=== PATIENT | female | born 1990 | race Caucasian/White ===

== ENCOUNTER 2018-04-15 20:37 | Outpatient (REF) | payer MEDICAID, SELFPAY ==
[2018-04-15 21:37] LABS: ALT 48 U/L (12-78); AST 27 U/L (15-37); Albumin 3.4 g/dL (3.4-5.0); Alkaline Phosphatase 90 U/L (46-116); Anion Gap 7.3 mmol/L (3-11); BUN 15 mg/dL (7-18); Bilirubin, Total 0.3 mg/dL (0.2-1.0); CO2 29.7 mmol/L (21.0-32.0); Chloride 105 mmol/L (98-107); Cholesterol 251 mg/dL (50-200); Estimated GFR 59.58 (mL/min/1.73m2); Glucose 94 mg/dL (70-100); HDL Cholesterol 38 mg/dL (40-60); LDL CHOLESTEROL 187 mg/dL (<100); Potassium 4.3 mmol/L (3.5-5.1); Sodium 142 mmol/L (136-145); TSH (W/Ref FT4) 1.97 uIU/mL (0.358-3.74); Total Protein 7.1 g/dL (6.4-8.2); Triglyceride 146 mg/dL (30-150)
[2018-04-15 21:46] LABS: Abs Immature Grans 0.02 k/cumm (0.0-0.09); Absolute Basophil Count 0.04 k/cumm (0.0-0.2); Absolute Eosinophil Count 0.61 k/cumm (0.0-0.7); Absolute Lymphocyte Count 3.72 k/cumm (1.2-3.4); Absolute Neutrophil Count 4.88 k/cumm (1.2-6.7); Basophils % 0.4; Eosinophils % 6.2; HGB 14.6 g/dL (12.0-15.5); Immature Grans % 0.2; Lymphocytes % 38.1; Mean Corp. HGB Concentration 31.7 g/dL (32.0-36.0); Mean Corpuscular Hemoglobin 26.4 pg (27.0-33.0); Mean Corpuscular Volume 83.2 fL (80-95); Mean Platelet Volume 10.8 fL (8.0-11.0); Monocytes % 5.1; Platelet Count 341 x1000/uL (130-400); RBC 5.53 m/cumm (4.00-5.20); RBC Distribution Width 14.7 % (11.7-14.6); White Blood Cell Count 9.77 k/cumm (4.4-10.8)
[2018-04-15 22:26] LABS: Hemoglobin A1C 5.8 % (4.5-6.2)
[2018-04-15 22:38] LABS: C-Reactive Protein 2.34 mg/dL (0.0-0.3)
[2018-04-15 23:05] LABS: ESR 17 MM/HR (0-20)
[2018-04-16 13:22] LABS: Calcium 9.9 mg/dL (8.5-10.1)
[2018-04-17 14:34] LABS: Vitamin D 25 Total 53.6 ng/ml (30-100)
== END 2018-04-15 20:57 ==
LOC: NCHCN 20:37
PROVIDERS: PCP Family Medicine; Visit Provider Family Medicine
DX: M54.2 Cervicalgia (principal); F41.1 Generalized anxiety disorder; E66.9 Obesity, unspecified
CPT/HCPCS: 80053; 80061; 82306; 83721; 85652; 83036; 84443; 85025; 86140

== ENCOUNTER 2019-04-14 18:05 | Outpatient (REF) | payer MEDICAID, SELFPAY ==
[2019-04-14 22:59] LABS: Bacteria Few HPF (Negative); Crystals Negative HPF (Negative); Epithelial Cells Few HPF (Negative); RBC 20-50 (0-2)
[2019-04-14 23:00] LABS: C & S Indicated? Yes; Casts Negative LPF (Negative); Mucus Trace (Negative)
== END 2019-04-14 18:25 ==
LOC: NCHCN 18:05
PROVIDERS: PCP Family Medicine; Visit Provider Family Medicine
DX: N20.0 Calculus of kidney (principal); R10.9 Unspecified abdominal pain
CPT/HCPCS: 81015; 87086

== ENCOUNTER 2020-03-14 12:30 | Outpatient (REF) | payer MEDICAID, SELFPAY | END 2020-03-14 12:50 | LOC: NCHCN 12:30 | PROVIDERS: PCP Family Medicine; Visit Provider Nurse Practitioner Family | DX: N20.0 Calculus of kidney (principal); R10.9 Unspecified abdominal pain | CPT/HCPCS: 87086 ==

== ENCOUNTER 2020-06-06 22:26 | Outpatient (REF) | payer MEDICAID, SELFPAY ==
[2020-06-10 10:10] LABS: COVID-19 RT-PCR Result NEGATIVE (Negative)
== END 2020-06-06 22:46 ==
LOC: NCHCN 22:26
PROVIDERS: PCP Family Medicine; Visit Provider Nurse Practitioner Family
DX: J02.9 Acute pharyngitis, unspecified (principal)
CPT/HCPCS: U0003

== ENCOUNTER 2020-08-25 22:29 | Outpatient (REF) | payer MEDICAID, SELFPAY ==
[2020-08-25 14:13] LABS: Vitamin D 25 Total 36.5 ng/ml (30-100)
[2020-08-25 14:23] LABS: ALT 30 U/L (14-59); AST 19 U/L (15-37); Albumin 3.4 g/dL (3.4-5.0); Alkaline Phosphatase 87 U/L (46-116); Anion Gap 8.5 mmol/L (3-11); BUN 15 mg/dL (7-18); Bilirubin, Total 0.2 mg/dL (0.2-1.0); CO2 28.5 mmol/L (21.0-32.0); Calcium 9.3 mg/dL (8.5-10.1); Calculated LDL 151 mg/dL (<100); Chloride 104 mmol/L (98-107); Cholesterol 218 mg/dL (<200); Glucose 90 mg/dL (74-106); HDL Cholesterol 40 mg/dL (40-60); Magnesium 1.9 mg/dL (1.8-2.4); Potassium 4.1 mmol/L (3.5-5.1); Sodium 141 mmol/L (136-145); Total Protein 7.4 g/dL (6.4-8.2); Triglyceride 137 mg/dL (<150); Vitamin B12 398 pg/mL (193-986)
== END 2020-08-25 22:30 | disposition home or self-care (01) ==
LOC: NCHCN 22:29
PROVIDERS: PCP Family Medicine; Visit Provider Family Medicine
DX: R73.03 Prediabetes (principal); E66.01 Morbid (severe) obesity due to excess calories; Z13.220 Encounter for screening for lipoid disorders; Z13.29 Encounter for screening for other suspected endocrine disorder; K21.9 Gastro-esophageal reflux disease without esophagitis
CPT/HCPCS: 80053; 80061; 82306; 82607; 83036; 83735; 84443

== ENCOUNTER 2020-09-21 20:17 | Outpatient (REF) | payer MEDICAID, SELFPAY | END 2020-09-21 20:18 | disposition home or self-care (01) | LOC: NCHCN 20:17 | PROVIDERS: PCP Family Medicine; Visit Provider Nurse Practitioner Community Health | DX: R31.9 Hematuria, unspecified (principal) | CPT/HCPCS: 87086 ==

== ENCOUNTER 2020-10-11 18:25 | Outpatient (REF) | payer MEDICAID, SELFPAY | END 2020-10-11 18:26 | disposition home or self-care (01) | LOC: NCHCN 18:25 | PROVIDERS: PCP Family Medicine; Visit Provider Nurse Practitioner Family | DX: R35.0 Frequency of micturition (principal) | CPT/HCPCS: 87086 ==

== ENCOUNTER 2020-12-29 10:23 | Outpatient (REF) | payer MEDICAID, SELFPAY | END 2020-12-29 10:24 | disposition home or self-care (01) | LOC: NCHCN 10:23 | PROVIDERS: PCP Family Medicine; Visit Provider Nurse Practitioner Family | DX: Z87.442 Personal history of urinary calculi (principal) | CPT/HCPCS: 87086 ==

== ENCOUNTER 2022-04-17 14:19 | Outpatient (REF) | payer MEDICAID, SELFPAY ==
[2022-04-17 15:14] LABS: Anion Gap 8.9 mmol/L (3-11); BUN 16 mg/dL (7-18); CO2 26.1 mmol/L (21.0-32.0); Calcium 9.4 mg/dL (8.5-10.1); Calculated LDL 189 mg/dL (<100); Chloride 105 mmol/L (98-107); Cholesterol 254 mg/dL (<200); Estimated GFR 77.24 (mL/min/1.73m2); Glucose 101 mg/dL (74-106); HDL Cholesterol 43 mg/dL (40-60); Potassium 4.4 mmol/L (3.5-5.1); Sodium 140 mmol/L (136-145); Triglyceride 111 mg/dL (<150)
== END 2022-04-17 14:20 | disposition home or self-care (01) ==
LOC: NCHCN 14:19
PROVIDERS: PCP Family Medicine; Visit Provider Family Medicine
DX: R73.03 Prediabetes (principal); E78.6 Lipoprotein deficiency; E66.01 Morbid (severe) obesity due to excess calories
CPT/HCPCS: 80048; 80061; 83036

== ENCOUNTER 2022-09-05 10:10 | Outpatient (REF) | payer MEDICAID, SELFPAY | END 2022-09-05 10:11 | disposition home or self-care (01) | LOC: NCHCN 10:10 | PROVIDERS: PCP Family Medicine; Visit Provider Internal Medicine | DX: L02.416 Cutaneous abscess of left lower limb (principal) | CPT/HCPCS: 87077; 87070; 87186; 87205 ==

== ENCOUNTER 2023-07-24 15:53 | Outpatient (REF) | payer MEDICAID, SELFPAY | END 2023-07-24 15:54 | disposition home or self-care (01) | LOC: NCHCN 15:53 | PROVIDERS: PCP Family Medicine; Visit Provider Physician Assistant | DX: R30.0 Dysuria (principal) | CPT/HCPCS: 87086 ==

== ENCOUNTER 2023-07-29 16:15 | Outpatient (REF) | payer MEDICAID, SELFPAY ==
[2023-07-29 22:29] LABS: ALT 30 U/L (14-59); AST 22 U/L (15-37); Albumin 3.7 g/dL (3.4-5.0); Alkaline Phosphatase 56 U/L (46-116); Anion Gap 9.6 mmol/L (3-11); BUN 13 mg/dL (7-18); Bilirubin, Total 0.2 mg/dL (0.2-1.0); CO2 25.4 mmol/L (21.0-32.0); CREATININE 1.1 mg/dL (0.55-1.02); Calcium 9.7 mg/dL (8.5-10.1); Chloride 106 mmol/L (98-107); Estimated GFR 68.04 (mL/min/1.73m2); Glucose 116 mg/dL (74-106); Magnesium 1.9 mg/dL (1.8-2.4); Potassium 3.8 mmol/L (3.5-5.1); Sodium 141 mmol/L (136-145); Total Protein 7.5 g/dL (6.4-8.2)
[2023-07-29 22:48] LABS: Calculated LDL 166 mg/dL (<100); Cholesterol 235 mg/dL (<200); HDL Cholesterol 43 mg/dL (40-60); Triglyceride 131 mg/dL (<150)
[2023-07-29 22:53] LABS: Hemoglobin A1C 5.6 % (<5.7)
== END 2023-07-29 16:16 | disposition home or self-care (01) ==
LOC: NCHCN 16:15
PROVIDERS: PCP Family Medicine; Visit Provider Registered Nurse
DX: R73.03 Prediabetes (principal); E78.5 Hyperlipidemia, unspecified; K21.00 Gastro-esophageal reflux disease with esophagitis, without bleeding
CPT/HCPCS: 80053; 80061; 83036; 83735

== ENCOUNTER 2023-09-06 16:25 | Outpatient (REF) | payer MEDICAID, SELFPAY | END 2023-09-06 16:26 | disposition home or self-care (01) | LOC: NCHCN 16:25 | PROVIDERS: PCP Family Medicine; Visit Provider Family Medicine | DX: J06.9 Acute upper respiratory infection, unspecified (principal); R07.0 Pain in throat | CPT/HCPCS: 87070 ==

== ENCOUNTER 2024-01-28 15:47 | Outpatient (REF) | payer MEDICAID, SELFPAY ==
[2024-01-28 21:15] LABS: Abs Immature Grans 0.02 10^3/uL (0.0-0.06); Absolute Basophil Count 0.06 10^3/uL (0.0-0.2); Absolute Eosinophil Count 0.58 10^3/uL (0.0-0.7); Absolute Lymphocyte Count 3.31 10^3/uL (1.2-3.4); Absolute Monocyte Count 0.45 10^3/uL (0.1-0.8); Absolute Neutrophil Count 4.46 10^3/uL (1.2-6.7); Basophils % 0.7 %; Eosinophils % 6.5 %; HCT 43.9 % (36.0-46.0); Immature Grans % 0.2 %; Lymphocytes % 37.3 %; MCH 26.2 pg (27.0-33.0); MCHC 31.9 % (32.0-36.0); MCV 82 fL (80-95); MPV 10.4 fL (8.0-11.0); Monocytes % 5.1 %; Neutrophils % 50.2 %; Platelet Count 346 10^3/uL (130-400); RBC 5.34 10^6/uL (3.93-5.22); RDW 14.5 % (11.7-14.6); RDW-SD 43.1 fL; WBC 8.88 10^3/uL (4.4-10.8)
[2024-01-28 21:36] LABS: ALT 15 U/L (14-59); AST 16 U/L (15-37); Albumin 3.4 g/dL (3.4-5.0); Alkaline Phosphatase 75 U/L (46-116); Anion Gap 5.3 mmol/L (3-11); BUN 17 mg/dL (7-18); CO2 30.7 mmol/L (21.0-32.0); CREATININE 1.1 mg/dL (0.55-1.02); Calcium 9.3 mg/dL (8.5-10.1); Chloride 104 mmol/L (98-107); Estimated GFR 68.04 (mL/min/1.73m2); Glucose 122 mg/dL (74-106); Lipase 29 U/L (16-77); Potassium 4.5 mmol/L (3.5-5.1); Sodium 140 mmol/L (136-145); Total Protein 7.3 g/dL (6.4-8.2)
[2024-01-29 16:53] LABS: Hemoglobin A1C 5.7 % (<5.7)
== END 2024-01-28 15:48 | disposition home or self-care (01) ==
LOC: NCHCN 15:47
PROVIDERS: PCP Family Medicine; Visit Provider Family Medicine
DX: R10.9 Unspecified abdominal pain (principal); R73.03 Prediabetes
CPT/HCPCS: 80053; 83690; 83036; 85025

== ENCOUNTER 2024-07-24 16:14 | Outpatient (REF) | payer MEDICAID, SELFPAY ==
[2024-07-24 21:05] LABS: Abs Immature Grans 0.03 10^3/uL (0.0-0.06); Absolute Eosinophil Count 0.73 10^3/uL (0.0-0.7); Absolute Lymphocyte Count 3.98 10^3/uL (1.2-3.4); Absolute Monocyte Count 0.48 10^3/uL (0.1-0.8); Basophils % 0.8 %; Eosinophils % 6.1 %; HCT 47.1 % (36.0-46.0); HGB 14.9 g/dL (11.2-15.7); Immature Grans % 0.3 %; Lymphocytes % 33.4 %; MCH 25.6 pg (27.0-33.0); MCHC 31.6 % (32.0-36.0); MCV 81 fL (80-95); MPV 10.5 fL (8.0-11.0); Neutrophils % 55.4 %; Platelet Count 376 10^3/uL (130-400); RBC 5.82 10^6/uL (3.93-5.22); RDW 14.8 % (11.7-14.6); RDW-SD 42.8 fL; WBC 11.92 10^3/uL (4.4-10.8)
[2024-07-24 21:27] LABS: Hemoglobin A1C 5.7 % (<5.7)
[2024-07-24 21:43] LABS: ALT 19 U/L (14-59); AST 19 U/L (15-37); Albumin 3.7 g/dL (3.4-5.0); Alkaline Phosphatase 69 U/L (46-116); Anion Gap 5.1 mmol/L (3-11); BUN 18 mg/dL (7-18); Bilirubin, Total 0.22 mg/dL (0.2-1.0); CO2 30.9 mmol/L (21.0-32.0); CREATININE 1.2 mg/dL (0.55-1.02); Calculated LDL 181 mg/dL (<100); Chloride 105 mmol/L (98-107); Cholesterol 270 mg/dL (<200); Estimated GFR 60.92 (mL/min/1.73m2); Folate 5.3 ng/mL (8.6-20.0); Glucose 117 mg/dL (74-106); HDL Cholesterol 42 mg/dL (40-60); Potassium 3.8 mmol/L (3.5-5.1); Sodium 141 mmol/L (136-145); TSH (W/Ref FT4) 1.87 uIU/mL (0.36-3.74); Total Protein 7.8 g/dL (6.4-8.2); Triglyceride 239 mg/dL (<150); Vitamin B12 523 pg/mL (193-986); Vitamin D 25 Total 27.6 ng/mL (30-100)
== END 2024-07-24 16:15 | disposition home or self-care (01) ==
LOC: NCHCN 16:14
PROVIDERS: PCP Family Medicine; Visit Provider Family Medicine
DX: R53.83 Other fatigue (principal); R73.03 Prediabetes; E66.01 Morbid (severe) obesity due to excess calories; D75.89 Other specified diseases of blood and blood-forming organs
CPT/HCPCS: 80053; 80061; 82306; 82607; 82746; 83036; 84443; 85025

== ENCOUNTER 2024-10-06 22:48 | Emergency (ER) | payer MEDICAID, SELFPAY ==
[2024-10-06 22:51] VITALS: BP 163/134; PULSE 102; RESP 18; TEMP 36.5; O2SAT 99
--- NOTE | 2024-10-06 23:00 | DI.RAD_ITS ---
Exam(s) XR HAND RT COMPLETE XR WRIST RT COMPLETE EXAM: XR HAND RT COMPLETE and XR wrist RT complete CLINICAL HISTORY: right thumb scaphoid tenderness. TECHNIQUE: 2D digital imaging was performed of the right wrist and hand. Seven images were obtained . AP, navicular, lateral and oblique views were obtained. COMPARISON: There are no priors for comparison. FINDINGS: BONES: No acute fracture is present. No bony destructive lesion is seen. JOINTS: No dislocation present. The joint spaces are well maintained. SOFT TISSUE: Normal. IMPRESSION: Unremarkable radiographs of the right wrist and hand. DATA REPOSITORY: RADIATION DOSE DELIVERED:
[2024-10-06] MEDS: Acetaminophen 500 MG TAB 1000 MG PO (23:20)
--- NOTE | 2024-10-07 | DI.VRAD_ITS ---
PROCEDURE INFORMATION: Exam: XR Right Wrist Exam date and time: 10/06/2024 11:26 PM Age: 34 years old Clinical indication: Pain; Wrist; Right thumb \T\ scaphoid tenderness TECHNIQUE: Imaging protocol: Radiologic exam of the right wrist. Views: 3 or more views. COMPARISON: CR XR HAND RT COMPLETE 10/06/2024 11:26 PM FINDINGS: Bones/joints: Normal. Soft tissues: Normal. IMPRESSION: No acute findings. Dictated and Authenticated by: Tequila Johnson MD. Orderin Drew Shepherd MD
--- NOTE | 2024-10-07 00:01 | ED.GENADUL_ITS ---
Discharge Plan Disposition Patient Disposition: Home Condition: Good Discharge Details Clinical Impression: Sprain Primary Care Provider: Rosie Shi ED Provider: Cora Russell Home Meds and New Rx's Prescriptions: Continued tamsulosin 0.4 mg capsule PO Patient Comments: TAKE ONE CAPSULE BY MOUTH EVERY DAY omeprazole 20 mg capsule,delayed release(/EC) Patient Comments: TAKE ONE CAPSULE BY MOUTH TWICE A DAY hydrochlorothiazide 12.5 mg tablet Patient Comments: TAKE ONE TABLET BY MOUTH EVERY DAY NEEDED FOR EDEMA Discharge Instructions Instructions: Common Wrist Injuries ED, Thumb Sprain ED Additional Instructions: You may have a bad sprain, but it is also possible you have a type of fracture that does not show up on xray or a more severe injury to your ligaments and te ndons. You will need to followup with a hand specialist within one week. [facility] plastic surgery should call you to schedule an appointment. If you do not hear from them by the day after tomorrow, please call them at [phone] to schedule your appointment. Wear the splint you were provided until cleared by your hand specialist. You can take tylenol and ibuprofen over the counter for pain; follow the directions on the bottle. Return to the emergency department for new or worsening symptoms including numbness or tingling in your hand, if your fingers change colors (white, blue), your pain is not controlled at home with over the counter medications, or if you have any other concerns. HPI General Mode of arrival: ambulatory . Date/Time Provider Initiated Documentation: 10/06/24 22:51 . Limitations to Documentation: no limitations . Information obtained by: patient . HPI Narrative: 34yo female presenting with right wrist and thumb pain onset shortly before arrival. She was holding her dog's collar when the dog moved; her hand twisted but she is not sure in what direction. Pain with moving wrist, moderate, dull, non-radiating. Difficult to move thumb. Has had some tingling to her thumb. No swelling. No numbness in thumb, hand, wrist. She did not fall. Right- handed. Otherwise in her usual state of health. Related Data Home Medications ?Medication ?Instructions ?Recorded ?Confirmed hydrochlorothiazide 12.5 mg tablet mg 10/06/24 omeprazole 20 mg capsule,delayed mg 10/06/24 release tamsulosin 0.4 mg capsule mg PO 10/06/24 Allergies Allergy/AdvReac Type Severity Reaction Status Date / Time aspirin AdvReac chest pain Verified 10/06/24 22:59 cyclobenzaprine (From AdvReac PT can't Verified 10/06/24 22:59 Flexeril) remember General Stated Complaint: Orthopedic BENJI: 3 Review of Systems Narrative: see HPI Exam Narrative Exam Narrative: General: Alert, well appearing, well nourished, in no acute distress. Head: Normocephalic, atraumatic Neck: Trachea midline, ?Neck supple. Cardiac: ?No cyanosis. Resp: No respiratory distress. Speaking in full sentences. Neurologic: GCS 15. ? Moves all extremities freely against gravity RUE: No deformities or swelling. Good radial pulse symmetric with left. Brisk capillary refill all digits. Sensation intact to light touch throughout wrist, hand, and all digits. Marked TTP of anatomic snuffbox, trapezium, 1st metacarpal. Minimal tenderness at PIP, proximal phalanx, and DIP. Minimal movement when attempting to oppose thumb. Unable to flex, adduct, or abduct thumb. Able to flex, extend, abduct and adduct wrist. Pain with passive ROM at wrist, greatest with abduction and adduction. Reassessment: RUE: No deformities or swelling. Good radial pulse symmetric with left. Brisk capillary refill all digits. Sensation intact to light touch throughout wrist, hand, and all digits. Marked TTP of anatomic snuffbox, trapezium, 1st metacarpal. Able to fully oppose thumb to all digits albeit with minimal strength. Improved thumb flexion and adduction. Remains unable to abduct. Able to flex, extend, abduct and adduct wrist. Pain with passive ROM at wrist, greatest with abduction and adduction. Course Vital Signs Vital signs: Vital Signs Temperature 36.5 C 10/06/24 22:51 Pulse 102 H 10/06/24 22:51 Respiratory Rate 18 10/06/24 22:51 Blood Pressure 163/134 H 10/06/24 22:51 Pulse Oximetry 99 10/06/24 22:51 Temperature 36.5 C 10/06/24 22:51 Pulse 102 H 10/06/24 22:51 Respiratory Rate 18 10/06/24 22:51 Blood Pressure 163/134 H 10/06/24 22:51 Pulse Oximetry 99 10/06/24 22:51 Pain Level 5 10/06/24 22:51 Medical Decision Making 34yo right handed female presenting with right wrist and thumb pain after hand was twisted while holding dog's collar. Hypertensive and slightly tachycardiac on arrival (suspect 2/t to pain). No deformity or swelling on exam. Good radial and ulnar pulse and brisk capillary refill all digits. Sensation intact to light touch throughout; does report parethesias to thumb. Minimal active ROM at thumb despite good effort. No evident laxity on my exam. Markedly tender to radial wrist and some tenderness to thumb as well; does have significant tenderness in the anatomic snuffbox concerning for scaphoid fracture. Not suggestive of vascular compromise; nerve injury is possible. -tylenol and ibuprofen for pain; offered toradol which pt declined -XR hand and wrist independently reviewed; no displaced fracture or dislocation on my view; radiology read below with no acute findings. On reassessment ROM improved, now able to fully oppose thumb ableit with poor strenghth; flexion/adduction also improved though she remains unable to abduct. Snuffbox tenderness raises concern for occult scaphoid fracture and limited strength/ROM at thumb for ligament or tendon injury. Consulted [facility]; spoke with Dr. Miller from plastic surgery covering for hand. Discussed patient's presentation and exam including parethesias (now resolved) and limited ROM and strength in thumb. Feels presentation likely due to sprain, though more severe ligamentous injury possible. Advised no further emergent/urgent imaging at this time (CT/MRI), appropriate for outpatient followup with plastics within one week, and thumb spica splint in the meantime. Discharged home to followup with plastics; discharge instructions and return precautions were reviewed with patient who verbalized understanding. All questions were answered and she is in full agreement with the plan. Quality:[facility] Health Related Social Needs: No Data to Display [facility] All Active Problems (Updated 10/07/24 @ 00:48 by Cora Russell MD) Sprain (Acute) Social History Smoking/Tobacco Use Status: Never Smoking risk assessment performed?: Yes Alcohol Intake: current Alcohol Intake frequency: holidays/special occasions only PAWSS Have you Been Recently Intoxicated or Drunk Within the Last 30 days?: No Have you Ever Experienced Previous Episodes of Alcohol Withdrawal?: No Have you ever Experienced Withdrawal Seizures?: No Have you ever Experienced Delirium Tremens(DT)s?: No Have you ever undergone Alcohol Rehabilitation Treatment (i.e, inpt ot outpatient treatment programs)?: No Have you ever Experienced Blackouts?: No Have you ever Combined Alcohol with other Downers within the last 90 days?: No Have you ever Combined Alcohol with any other Substance of Abuse during the last 90 days?: No Positive Blood Alcohol level on Presentation? [PCS.BAL]: No Evidence of Increased Autonomic Activity (i.e. HR>120, tremor, sweating, agitation, nausea)?: No Result: 0
--- NOTE | 2024-10-07 00:02 | DI.VRAD_ITS ---
PROCEDURE INFORMATION: Exam: XR Right Hand Exam date and time: 10/06/2024 11:26 PM Age: 34 years old Clinical indication: Pain; Hand; Right thumb \T\ scaphoid tenderness TECHNIQUE: Imaging protocol: Radiologic exam of the right hand. Views: 3 or more views. COMPARISON: CR XR WRIST RT COMPLETE 10/06/2024 11:26 PM FINDINGS: Bones/joints: Normal. Soft tissues: Normal. IMPRESSION: No acute findings. Dictated and Authenticated by: Tequila Johnson MD. Orderin Drew Shepherd MD
[2024-10-07] MEDS: Ibuprofen 800 MG TAB PO (00:18)
[2024-10-07 00:20] VITALS: BP 127/74; PULSE 76; RESP 18; O2SAT 99
[2024-10-07 01:00] VITALS: PULSE 77; RESP 18; O2SAT 99
--- NOTE | 2024-10-10 12:34 | NUR.NOTE ---
Accessed chart to get the discharge diagnosis for [facility] billing purposes.Nursing Note:
== END 2024-10-07 01:03 | disposition home or self-care (01) ==
LOC: ER 10-07 01:06
PROVIDERS: Emergency Provider Student in an Organized Health Care Education/Training Program; PCP Family Medicine
DX: S63.501A Unspecified sprain of right wrist, initial encounter (principal); X50.1XXA Overexertion from prolonged static or awkward postures, initial encounter; Y93.K9 Activity, other involving animal care; Y92.89 Other specified places as the place of occurrence of the external cause
CPT/HCPCS: 99283; 73110; 73130

== ENCOUNTER 2024-11-20 16:45 | Emergency (ER) | payer MEDICAID, SELFPAY ==
[2024-11-20 16:49] VITALS: BP 121/77; PULSE 120; RESP 22; O2SAT 97
--- NOTE | 2024-11-20 16:56 | ED.GENADUL_ITS ---
Discharge Plan Disposition Patient Disposition: Home Condition: Stable Discharge Details Clinical Impression: Laceration of hand Primary Care Provider: Rosie Shi ED Provider: Sayra Mcelroy Home Meds and New Rx's Prescriptions: No Action tamsulosin 0.4 mg capsule PO Patient Comments: TAKE ONE CAPSULE BY MOUTH EVERY DAY omeprazole 20 mg capsule,delayed release(DR/EC) Patient Comments: TAKE ONE CAPSULE BY MOUTH TWICE A DAY hydrochlorothiazide 12.5 mg tablet Patient Comments: TAKE ONE TABLET BY MOUTH EVERY DAY NEEDED FOR EDEMA Discharge Instructions Instructions: Laceration Repair With Glue ED Additional Instructions: You were seen in the emergency department today for evaluation of a laceration. In our department you do full physical examination performed, had the wound thoroughly cleaned, and it was repaired with glue and Steri-Strips. As this is your dominant hand it is likely that these will fall off in the next few days. Once they do please keep the area clean and dry, use antibiotic ointment and bandages. Avoid soaking or scrubbing the area, and wear gloves for the first 1 to 2 days when bathing or doing dishes. Please follow-up with your primary care provider in the next few days to discuss this visit and any symptoms that change, worsen, or persist. Thank you for allowing us to be part of your care. HPI General Mode of arrival: ambulatory . Date/Time Provider Initiated Documentation: 11/20/24 16:55 . Limitations to Documentation: no limitations . Information obtained by: patient, family and old records reviewed . HPI Narrative: This is a 34-year-old female patient with a history of panic disorder who is presenting for evaluation of hand laceration. She is right-hand dominant, was throwing a delfino piece of metal because she got angry, and sliced the palm of her right hand during this event. This happened approximately 30 minutes prior to arrival at our facility, she did not injure any other part of her body. She reports that she feels like she is panicking and going to , or have a heart attack, or have a stroke. She is noted to be tachypneic, with carpopedal spasms bilaterally. She states that she feels like both of her hands are numb, as are her legs. She is accompanied by her partner, as well as her sister. Prior to this event she is reported to have been in her normal state of health. Her partner reports that her tetanus shot is not up-to-date. Related Data Home Medications ?Medication ?Instructions ?Recorded ?Confirmed hydrochlorothiazide 12.5 mg tablet mg 10/06/24 omeprazole 20 mg capsule,delayed mg 10/06/24 release tamsulosin 0.4 mg capsule mg PO 10/06/24 Allergies Allergy/AdvReac Type Severity Reaction Status Date / Time aspirin AdvReac chest pain Verified 10/06/24 22:59 cyclobenzaprine (From AdvReac PT can't Verified 10/06/24 22:59 Flexeril) remember General Stated Complaint: Laceration BENJI: 3 Exam Narrative Exam Narrative: Gen: Awake and alert, in no apparent distress HEENT: Non-icteric sclera Neck: Supple Lungs: Tachypnea and hyperventilation appreciated, normal oxygen saturation CV: Appears well perfused, heart with tachycardic rate but regular rhythm, strong distal pulses Abdomen: Non-distended MSK: Moves 4 extremities without apparent limitation in ROM Skin: Visualized skin without rashes, cyanosis. The patient has a very superficial 3 cm laceration to the right palm, along the thenar crease. It is hemostatic. She has a very small abrasion to the hyperthenar aspect of the palm, hemostatic. No visualized foreign bodies. Neuro: Normal Gait, no obvious focal deficits or facial asymmetry. Speaks in full, clear sentences. Endorsing numbness throughout her body, with carpopedal spasms Psych: Endorsing extreme anxiety and panic feelings Course Vital Signs Vital signs: Vital Signs Pulse 120 H 11/20/24 16:49 Respiratory Rate 22 11/20/24 16:49 Blood Pressure 121/77 11/20/24 16:49 Pulse Oximetry 97 11/20/24 16:49 Pulse 120 H 11/20/24 16:49 Respiratory Rate 22 11/20/24 16:49 Blood Pressure 121/77 11/20/24 16:49 Pulse Oximetry 97 11/20/24 16:49 Oxygen Delivery Method Room Air 11/20/24 16:49 Oxygen Flow Rate 0 11/20/24 16:49 Medical Decision Making This is a 34-year-old female patient presenting for a hand laceration. The patient's course is complicated by significant anxiety and panic with hyperventilation and carpopedal spasms. My differential includes but is not limited to laceration, I certainly considered other etiologies such as fracture, dislocation, foreign body, though these are less consistent with the history and physical examination. This is an isolated injury. The patient was provided with Tylenol for pain as well as an Ativan to facilitate evaluation of her injury. After thorough cleansing, it was determined that this wound would be quite appropriate for skin glue and Steri- Strips. These were placed by this provider with excellent approximation after the event. The patient's tetanus shot was boosted, though she did require a second dose of oral Ativan to allow us to do this procedure. At this time, the patient has had a full medical evaluation and is safe for discharge to home. They are hemodynamically stable, ambulatory, and tolerating PO. They are understanding of the follow-up plan and return precautions. They left our facility without incident. aSyra Mcelroy MD Medical Records Medical records reviewed: Yes I reviewed the patient's medical records. Quality:[facility] Health Related Social Needs: No Data to Display PFSH All Active Problems (Updated 11/20/24 @ 18:24 by Sayra Mcelroy MD) Laceration of hand (Acute) Social History Smoking/Tobacco Use Status: Never Smoking risk assessment performed?: Yes Alcohol Intake: current Alcohol Intake frequency: holidays/special occasions only
[2024-11-20] MEDS: Acetaminophen 500 MG TAB 1000 MG PO (17:33)
[2024-11-20] MEDS: LORazepam 1 MG TAB PO ×2 (17:33→18:16)
[2024-11-20] MEDS: Diph,Pertuss(Acell),Tet Vac/Pf 0.5 ML SYR IM (18:37)
== END 2024-11-20 18:37 | disposition home or self-care (01) ==
LOC: ER 18:41
PROVIDERS: Emergency Provider Emergency Medicine; PCP Family Medicine
DX: S61.412A Laceration without foreign body of left hand, initial encounter (principal); Z23 Encounter for immunization; W26.8XXA Contact with other sharp object(s), not elsewhere classified, initial encounter; Y93.89 Activity, other specified
CPT/HCPCS: 12002; 90471; 90715; 99283

== ENCOUNTER 2025-01-12 07:26 | Emergency (ER) | payer MEDICAID, SELFPAY ==
[2025-01-12 07:29] VITALS: BP 134/83; PULSE 119; RESP 20; TEMP 35.7; O2SAT 100
--- NOTE | 2025-01-12 07:34 | W.ED.GENAD ---
Discharge Plan Disposition Patient Disposition: Home Condition: Stable Discharge Details Clinical Impression: Calculus of ureterovesical junction (UVJ) Primary Care Provider: Rosie Shi ED Provider: Sayra Mcelroy Home Meds and New Rx's Prescriptions: New tamsulosin 0.4 mg capsule 0.4 mg PO DAILY Qty: 14 0RF ondansetron 4 mg tablet,disintegrating 4 mg PO Q8H PRNQty: 10 0RF morphine 15 mg tablet 15 mg PO Q8H PRNQty: 7 0RF No Action tamsulosin 0.4 mg capsule 0.4 mg PO PRN Patient Comments: TAKE ONE CAPSULE BY MOUTH EVERY DAY omeprazole 20 mg capsule,delayed release(DR/EC) 20 mg PO BID Patient Comments: TAKE ONE CAPSULE BY MOUTH TWICE A DAY hydrochlorothiazide 12.5 mg tablet 12.5 mg PO DAILY Patient Comments: TAKE ONE TABLET BY MOUTH EVERY DAY NEEDED FOR EDEMA dextroamphetamine-amphetamine 15 mg tablet 15 mg PO BID Patient Comments: TAKE ONE TABLET BY MOUTH TWICE A DAY DIRECTED lorazepam 1 mg tablet 1 mg PO PRN PRN Patient Comments: TAKE ONE TABLET BY MOUTH EVERY DAY NEEDED FOR PANIC/ANXIETY Discharge Instructions Instructions: Kidney Stone, Adult ED Additional Instructions: You were seen in the emergency department today for evaluation of right flank pain and were found to have a 3 mm stone. In our department you had a full physical examination performed, had laboratory studies that were largely reassuring, though you do have a slightly low magnesium that you can replete through your diet. Please maintain good hydration, as this is the most important factor in prevention and passage of stones. Please use therapeutic dosing of Tylenol (acetaminophen) & Advil (ibuprofen) in an alternating fashion as follows: Take 1000mg of Tylenol every 6 hours without missing doses- that is 4 times per day. Care Home in between the Tylenol doses, take 600mg of Advil also on a 6 hour schedule, that is also 4 times per day. With this strategy, you will be taking something for fever/pain as often as every 3 hours. The daily maximum dosing of Tylenol is 4000mg, and the daily maximum dosing of Advil is 2400mg. Please note that some common cold medications & prescription pain medications may contain acetaminophen and you need to read OTC drug labels and factor that in to maximum daily doses. Please take Flomax daily until you have passed the stone. I have provided you with a short course of oral morphine as well as a nausea medication, you can take the morphine as needed for severe pain. Please follow-up with your primary care provider in the next few days to discuss this visit and any symptoms that change, worsen, or persist. Thank you for allowing us to be part of your care. Referrals: Jason Collins MD [ [facility] STAFF PHYSICIAN, Urology] - Return if symptoms worsen HPI General Mode of arrival: ambulatory. Date/Time Provider Initiated Documentation: 01/12/25 07:32. Limitations to Documentation: no limitations. Information obtained by: patient and old records reviewed. HPI Narrative: This is a 34-year-old female patient with a reported past medical history of kidney stones, presenting for evaluation of right flank pain. She reports that she started to have this pain 48 hours ago, located on the right side and wrapping around to her abdomen. She states that this pain has persisted, is worse when she tries to take a deep breath, moves, or you press on it. She has taken ibuprofen in the home environment without significant improvement. Has been taking Flomax, states that in the past her kidney stones have passed on their own. Not currently taking any antibiotics. She reports no fevers, nausea or vomiting, dysuria or hematuria. She uses condoms for prevention. No abdominal pain, has been able to maintain her oral intake. Related Data Home Medications ?Medication ?Instructions ?Recorded ?Confirmed hydrochlorothiazide 12.5 mg tablet 12.5 mg PO DAILY 10/06/24 01/12/25 omeprazole 20 mg capsule,delayed 20 mg PO BID 10/06/24 01/12/25 release tamsulosin 0.4 mg capsule 0.4 mg PO PRN 10/06/24 01/12/25 dextroamphetamine-amphetamine 15 15 mg PO BID 01/12/25 01/12/25 mg tablet lorazepam 1 mg tablet 1 mg PO PRN PRN 01/12/25 01/12/25 morphine 15 mg immediate release 15 mg PO Q8H PRN #7 tabs 01/12/25 tablet ondansetron 4 mg disintegrating 4 mg PO Q8H PRN #10 tabs 01/12/25 tablet tamsulosin 0.4 mg capsule 0.4 mg PO DAILY #14 caps 01/12/25 Previous Rx's ?Medication ?Instructions ?Recorded morphine 15 mg immediate release 15 mg PO Q8H PRN #7 tabs 01/12/25 tablet ondansetron 4 mg disintegrating 4 mg PO Q8H PRN #10 tabs 01/12/25 tablet tamsulosin 0.4 mg capsule 0.4 mg PO DAILY #14 caps 01/12/25 Allergies Allergy/AdvReac Type Severity Reaction Status Date / Time aspirin AdvReac chest pain Verified 01/12/25 07:58 cyclobenzaprine (From AdvReac PT can't Verified 01/12/25 07:58 Flexeril) remember General Stated Complaint: FlankPain BENJI: 3 Exam Narrative Exam Narrative: Gen: Awake and alert, in no apparent distress HEENT: Non-icteric sclera Neck: Supple Lungs: No apparent respiratory distress, normal respiratory effort. Lung sounds clear and equal bilaterally without wheezes, rhonchi, rales CV: Appears well perfused, heart with tachycardic rate but regular rhythm, strong distal pulses, no murmurs auscultated Abdomen: Non-distended, soft, nontender to palpation without rigidity, rebound, or guarding MSK: Moves 4 extremities without apparent limitation in ROM. Right CVA tenderness present, no overlying skin changes appreciated in the area of pain. Skin: Visualized skin without rashes, cyanosis. Neuro: Normal Gait, no obvious focal deficits or facial asymmetry. Speaks in full, clear sentences. Psych: Appropriate for situation. Course Vital Signs Vital signs: Vital Signs Temperature 35.7 C L 01/12/25 07:29 Pulse 119 H 01/12/25 07:29 Respiratory Rate 20 01/12/25 07:29 Blood Pressure 134/83 01/12/25 07:29 Pulse Oximetry 100 01/12/25 07:29 Temperature 35.7 C L 01/12/25 07:29 Temperature Source Oral 01/12/25 07:29 Pulse 119 H 01/12/25 07:29 Respiratory Rate 20 01/12/25 07:29 Blood Pressure 134/83 01/12/25 07:29 Blood Pressure Position Sitting 01/12/25 07:29 Pulse Oximetry 100 01/12/25 07:29 Oxygen Delivery Method Room Air 01/12/25 07:29 Oxygen Flow Rate 0 01/12/25 07:29 Pain Level 7 01/12/25 07:29 Medical Decision Making This is a 34-year-old female patient presenting for evaluation of right flank pain. Differential includes but is not limited to nephrolithiasis, urinary tract infection/pyelonephritis. Reassuringly the patient has no fever to significantly increase my concern for systemic infection such as bacteremia or sepsis. I certainly considered pulmonary abnormalities in this patient who is stating that the pain is worse with deep breath, including pneumonia, pleural effusion, pulmonary edema, and pulmonary embolism, though these are less concerning to me given the patient's normal oxygenation status and her robust kidney stone history. I considered early , ectopic , no vaginal symptoms to suggest PID/TOA. We will obtain laboratory studies to include CBC, CMP, magnesium, urinalysis, and urine test. I will provide the patient with intravenous fluids as well as Tylenol and Toradol for initial symptom management. We will obtain a CT renal stone study. - The patient reports that she does not want anything to go through her IV other than IV fluids, and states that she is feeling increasingly anxious. The patient has a history of severe anxiety and panic disorder, and ultimately we discussed utilizing oral ibuprofen and Ativan for management of her symptoms. I independently interpreted the laboratory studies, which show no significant leukocytosis, anemia, or thrombocytopenia. The chemistry panel is without evidence of electrolyte abnormality, kidney dysfunction, or liver injury, other than a slightly low magnesium at 1.6, which I recommended that the patient replete orally given her hesitance for IV repletion. CT scan reviewed by myself, and radiology notes a suspicious calcification at the UVJ, 3 mm, as well as nonobstructing left kidney stones. No evidence of significant hydronephrosis or other abnormalities on the CT scan. The findings were shared with the patient, who reports improvement in her symptoms since ibuprofen. Urinalysis was noninfectious. I refilled the patient's tamsulosin, counseled her on multimodal pain management and provided her with a short course of oral morphine and Zofran. If her symptoms do not improve I provided her with the phone number for urology clinic to call and schedule an appointment for reevaluation. At this time, the patient has had a full medical evaluation and is safe for discharge to home. They are hemodynamically stable, ambulatory, and tolerating PO. They are understanding of the follow-up plan and return precautions. They left our facility without incident. Sayra Mcelroy MD [facility] All Active Problems (Updated 01/12/25 @ 10:11 by Sayra Mcelroy MD) Calculus of ureterovesical junction (UVJ) (Acute) Social History Smoking/Tobacco Use Status: Never Smoking risk assessment performed?: Yes Alcohol Intake: current Alcohol Intake frequency: holidays/special occasions only Drug use: Occasionally Substance use type: marijuana Housing: house
[2025-01-12 07:37] VITALS: BP 134/84; PULSE 119; RESP 20; TEMP 35.7; O2SAT 100
[2025-01-12] MEDS: Acetaminophen 500 MG TAB 1000 MG PO (07:51)
[2025-01-12] MEDS: Lactated Ringers 1,000 ML 1000 ML IV (07:53)
[2025-01-12 08:07] LABS: Abs Immature Grans 0.02 10^3/uL (0.0-0.06); HCT 48.0 % (36.0-46.0); HGB 15.3 g/dL (11.2-15.7); Immature Grans % 0.2 %; MCH 26.7 pg (27.0-33.0); MCHC 31.9 % (32.0-36.0); MCV 84 fL (80-95); MPV 10.2 fL (8.0-11.0); Platelet Count 335 10^3/uL (130-400); RBC 5.74 10^6/uL (3.93-5.22); RDW 15.0 % (11.7-14.6); RDW-SD 45.9 fL; WBC 10.10 10^3/uL (4.4-10.8)
[2025-01-12] MEDS: LORazepam 1 MG TAB PO (08:10)
[2025-01-12] MEDS: Ibuprofen 600 MG TAB PO (08:10)
[2025-01-12 08:35] LABS: ALT 25 U/L (14-59); AST 12 U/L (15-37); Albumin 3.7 g/dL (3.4-5.0); Alkaline Phosphatase 56 U/L (46-116); Anion Gap 9.0 mmol/L (3-11); BUN 17 mg/dL (7-18); Bilirubin, Total 0.5 mg/dL (0.2-1.0); CO2 29.0 mmol/L (21.0-32.0); Calcium 9.5 mg/dL (8.5-10.1); Chloride 102 mmol/L (98-107); Estimated GFR 86.03 (mL/min/1.73m2); Glucose 119 mg/dL (74-106); Magnesium 1.6 mg/dL (1.8-2.4); Potassium 3.4 mmol/L (3.5-5.1); Sodium 140 mmol/L (136-145); Total Protein 7.5 g/dL (6.4-8.2)
--- NOTE | 2025-01-12 09:23 | DI.CT_ITS ---
Exam(s) CT RENAL COLIC WO EXAM: CT RENAL COLIC WO CLINICAL HISTORY: R. flank pain, hx stones. TECHNIQUE: Imaging Protocol: Axial computed tomography images with coronal and sagittal reformatted images were created and reviewed. COMPARISON: No exams were available for comparison FINDINGS: ABDOMEN: Lung Bases: There is a small hiatal hernia. Liver: Normal density. No measurable mass. Gallbladder and biliary tract: No radiodense calculus or biliary ductal dilation. Pancreas: Normal density, no abnormal calcifications or inflammatory process. Spleen: Normal. Kidneys: Normal size, contour and axis.There is bilateral medullary nephrocalcinosis. There are nonobstructing stones seen in the superior pole of the left kidney. There is a 3 mm calcification near the region of the right UVJ (series 3, image 95) suspicious for distal right ureteral calculus. No si gnificant hydronephrosis is present. There is a 1.4 cm simple cyst on the superior pole of the right kidney. No follow-up is recommended. Adrenal glands: No mass is seen. Lymph nodes: Within normal limits. Abdominal Aorta: Abdominal portion non-dilated. PELVIS: Bladder:Symmetric distention, no gross wall thickening. Bowel: No obstruction or bowel wall thickening. Appendix is unremarkable. Peritoneal cavity: No ascites, collection or mesenteric inflammatory response. No free air. Reproductive organs: Unremarkable as visualized. Bones: Within normal limits. Soft Tissues: Within normal limits. IMPRESSION: 1. 3 mm calcification near the region of the right UVJ suspicious for distal right ureteral calculus. No significant hydronephrosis is present. 2. Bilateral medullary nephrocalcinosis. 3. Left nephrolithiasis. RADIATION DOSE DELIVERED: 804.03mGy.cm Total DLP DATA REPOSITORY: All CT scans at this facility are submitted to the National Radiology Data Registry (NRDR) Dose Index Registry (DIR) with the [employer] ([employer]). RADIATION OPTIMIZATION: All CT scans at this facility use at least one of these dose optimization techniques: automated exposure control; mA and/or kV adjustment per patient size (includes targeted exams where dose is matched to clinical indication); or iterative reconstruction.
[2025-01-12 10:01] LABS: Glucose Negative (Negative)
[2025-01-12 10:09] LABS: C & S Indicated? No; RBC 0-2 HPF (0-2); WBC Negative HPF (0-5)
[2025-01-12 10:13] VITALS: BP 125/70; PULSE 70; RESP 17; TEMP 36.5; O2SAT 98
== END 2025-01-12 11:03 | disposition home or self-care (01) ==
PROVIDERS: Emergency Provider Emergency Medicine; PCP Family Medicine
DX: E83.59 Other disorders of calcium metabolism (principal); N29 Other disorders of kidney and ureter in diseases classified elsewhere; N20.2 Calculus of kidney with calculus of ureter
CPT/HCPCS: 80053; 81025; 99284; 74176; 81003; 81015; 83735; 85025